=== PATIENT | male | born 1950 | race Caucasian/White ===

== ENCOUNTER 2016-08-13 12:11 | Day surgery (SDC) | payer OTHER ==
[~2016-08-13] VITALS: Ht 171.4 cm; Wt 91.8 kg
[~2016-08-13 12:11] MED LIST: ASPIRIN81 M2 PO; CARVEDILOL25 MG PO; COREG25 M1 PO; CRESTOR40 MG PO; Coreg PO; Ecotrin PO; FISH OIL 1,2001 EAC4 PO; FUROSEMIDE20 MG PO; GLUCOPHAGE500 MG PO; Glucophage PO; KLOR-CON M2020 MEQ PO; LIPITOR80 MG PO; LISINOPRIL10 MG PO; LISINOPRIL20 MG PO; LO-DOSE ASPIRIN81 M2 PO; Lipitor PO; MULTIVITAMIN1 EAC2 PO; NITROSTAT0.4 MG SL; Nitrostat,NitroQuick SL; OMEGA 3-6-91200 MG PO; PLAVIX75 MG PO; Plavix PO; RANITIDINE HCL150 M1 PO; TRILIPIX135 MG PO; Theragran PO; Zestril,Prinivil PO; [UNRECOGNIZED DRUG - REMARK] PO
[2016-08-13 13:01] LABS: POINT-OF-CARE METER ID UU13113696
[2016-08-13 21:30] VITALS: BP 127/66
[2016-08-14 00:37] VITALS: BP 124/60
[2016-08-14 07:37] VITALS: BP 125/62
[2016-08-14 11:30] VITALS: BP 131/68
== END 2016-08-14 13:53 | disposition home or self-care (01) ==
LOC: CATH 12:11 → 4EAST 15:00 → CATH 08-14 13:30 → 4EAST 08-14 13:53
PROVIDERS: Internal Medicine Cardiovascular Disease
DX: Z45.02 Encounter for adjustment and management of automatic implantable cardiac defibrillator (principal); I50.9 Heart failure, unspecified; I44.7 Left bundle-branch block, unspecified; J45.909 Unspecified asthma, uncomplicated; E11.9 Type 2 diabetes mellitus without complications; I25.5 Ischemic cardiomyopathy; I34.0 Nonrheumatic mitral (valve) insufficiency; I25.2 Old myocardial infarction; I27.2 Other secondary pulmonary hypertension; Z87.891 Personal history of nicotine dependence; Z79.82 Long term (current) use of aspirin
CPT/HCPCS: 71010; 82948; 93005; C1769; C1882; C1887; C1894; C1899; G0378; J0690; J1200; J2250; J3010; S0020